=== PATIENT | female | born 1965 | race African-American/Black ===

== ENCOUNTER 2016-08-19 08:46 | Emergency (ER) | payer MEDICAID ==
--- NOTE | 2016-08-19 09:53 | ED Physician Chart ---
Chief Complaint/HPI - Patient Information Date Seen:: 08/19/16 Time Seen:: 09:40 Chief Complaint:: itching base of neck History of Present Illness:: For the last 2 days patient has had the itching around the base of the anterior neck. Allergies:: Allergies Allergy/AdvReac Type Severity Reaction Status Date / Time No Known Allergies Allergy Verified 08/19/16 09:32 Vitals:: Vital Signs - 8 hr 08/19/16 09:27 Temp 97.9 F HR 92 RR 16 BP 144/97 O2 Sat % 100 Historian:: Patient Review:: Nurse's Note Reviewed Review of Systems - Review of Systems General/Constitutional: No fever, No chills Skin: Skin lesions Head: No headache Eyes: No loss of vision ENT: No earache Neck: Other (see above under skin) Cardio Vascular: No chest pain, No palpitations Pulmonary: No SOB GI: No nausea, No vomiting G/U: No dysuria, No hematuria Musculoskeletal: No bone or joint pain, No back pain, No muscle pain Psychiatric: No prior psych history, No depression, No anxiety Hematopoietic: No bruising Allergic/Immuno: No urticaria, No angioedema Neurological: No syncope, No focal symptoms, No weakness Past Medical History - Past Medical History Past Medical History: HTN, Asthma/COPD Family History: Diabetes Melitus, HTN Social History: Non Smoker Surgical History: None Psychiatricy History: None Medication: Reviewed Physical Exam - Physical Examination General/Constitutional: Well-developed, well-nourished, Alert Head: Atraumatic Eyes: Lids, conjuctiva normal, PERRL Other Skin comments:: There is hyperpigmentation of the skin of the anterior base of the neck left side more the right side. The skin is also shiny. The edges of the rash are not well demarcated. ENMT: External ears, nose nl Neck: No nuchal rigidity Respiratory: Nl effort/Exclusion, Clear to Auscultation Cardio Vascular: RRR GI: No tenderness/rebounding/guarding, No hernia : No CVA tenderness Extremities: No tenderness or effusion, Full ROM Neuro/Psych: Alert/oriented Misc: Normal back Assessment - Assessment General Assessment: Rash seems to be tinea corporis even though there is not a well demarcated border. ED Septic Shock - . Is Septic Shock (SBP<90, OR Lactate>4 mmol\L) present?: No - <6hrs of presentation: Vital Signs: Vital Signs - 8 hr 08/19/16 09:27 Temp 97.9 F HR 92 RR 16 BP 144/97 O2 Sat % 100 Reassessment (Disposition) - Reassessment Reassessment Condition:: Unchanged - Diagnosis Diagnosis:: Tinea corporis - Aftercare/Follow up Instructions Medication Prescribed:: Lotrisone 15 g tube to apply sparingly twice a day; Diflucan 100 mg daily for 1 week; Atarax 25 mg #20 to take 14 times a day; note to return to work 08/21/2016 - Patient Disposition Discharge/Transfer:: Home Condition at Disposition:: Stable, Unchanged
== END 2016-08-19 10:08 | disposition home or self-care (01) ==
LOC: ER 08:46
DX: B35.4 Tinea corporis (principal); I10 Essential (primary) hypertension; J45.909 Unspecified asthma, uncomplicated; J44.9 Chronic obstructive pulmonary disease, unspecified
CPT/HCPCS: Z7502

== ENCOUNTER 2016-09-17 13:50 | Emergency (ER) | payer MEDICAID ==
--- NOTE | 2016-09-17 14:39 | ED Physician Chart ---
Chief Complaint/HPI - Patient Information Date Seen:: 09/17/16 Time Seen:: 14:02 Chief Complaint:: LEFT FACE SWELLING History of Present Illness:: THIS IS A 51 YO BLACK FEMALE WITH THE SUDDEN ONSET OF LEFT FACE SWELLING, TENDERNESS AND A HEADACHE. SHE DENIES TRAUMA, FEVER, TOOTHACHE BUT HAS DENTAL ISSUES. SHE HAS HYPERTENSION BUT NO DIABETES OR HEART DISEASE. SHE HAS A HISTORY OF ASTHMA. Allergies:: Allergies Allergy/AdvReac Type Severity Reaction Status Date / Time No Known Allergies Allergy Verified 08/19/16 09:32 Vitals:: Vital Signs - 8 hr 09/17/16 14:00 Temp 97.7 F HR 86 RR 16 BP 129/83 O2 Sat % 97 Historian:: Patient Review:: Nurse's Note Reviewed, Old Chart Reviewed Review of Systems - Review of Systems General/Constitutional: No fever, No chills, No weight loss, No weakness, No diaphoresis, No edema, No loss of appetite Skin: No skin lesions, No rash, No bruising Head: No headache, No light-headedness Eyes: No loss of vision, No pain, No diplopia ENT: No earache, No nasal drainage, No sore throat, No tinnitus, Other (MAXILLA PAIN) Neck: No neck pain, No swelling, No thyromegaly, No stiffness, No mass noted Cardio Vascular: No chest pain, No palpitations, No PND, No orthopnea, No edema Pulmonary: No SOB, No cough, No sputum, No wheezing GI: No nausea, No vomiting, No diarrhea, No pain, No melena, No hematochezia, No constipation, No hematemesis G/U: No dysuria, No frequency, No hematuria Musculoskeletal: No bone or joint pain, No back pain, No muscle pain Endocrine: No polyuria, No polydipsia Psychiatric: No prior psych history, No depression, No anxiety, No suicidal ideation Hematopoietic: No bruising, No lymphadenopathy Allergic/Immuno: No urticaria, No angioedema Neurological: No syncope, No focal symptoms, No weakness, No paresthesia, No headache, No seizure, No dizziness, No confusion, No vertigo Past Medical History - Past Medical History Obtainable: Yes Past Medical History: HTN, Asthma/COPD Family History: Diabetes Melitus, HTN Social History: Non Smoker, No Alcohol, No Drug Use Surgical History: None Psychiatricy History: None Medication: Reviewed Family Medical History - Family Member Mother History Unknown: Yes Ethnicity: Non- Living Status: Still Living Hx Family Hypertension: Yes Father Ethnicity: Non- Living Status: Hx Family Diabetes: Yes Physical Exam - Physical Examination General/Constitutional: Awake, Well-developed, well-nourished, Alert, No distress, GCS 15, Non-toxic appearing, Ambulatory Head: Atraumatic Eyes: Lids, conjuctiva normal, PERRL, EOMI Skin: Nl inspection, No rash, No skin lesions, No ecchymosis, Well hydrated, No lymphadenopathy ENMT: External ears, nose nl, Nasal exam nl, Lips, teeth, gums nl Neck: Nontender, Full ROM w/o pain, No JVD, No nuchal rigidity, No bruit, No mass, No stridor Respiratory: Nl effort/Exclusion, Clear to Auscultation, No Wheeze/Rhonchi/Rales Cardio Vascular: RRR, No murmur, gallop, rubs, NL S1 S2 GI: No tenderness/rebounding/guarding, No organomegaly, No hernia, Normal BS's, Nondistended, No mass/bruits, No McBurney tenderness : No CVA tenderness Extremities: No tenderness or effusion, Full ROM, normal strength in all extremities, No edema, Normal digits & nails Neuro/Psych: Alert/oriented, DTR's symmetric, Normal sensory exam, Normal motor strength, Judgement/insight normal, Mood normal, Normal gait, No focal deficits Misc: normal gait, Normal back, No paraspinal tenderness Labs/Radiology/EKG Results - Lab Results Results: Abnormal Lab Results 09/17/16 09/17/16 09/17/16 14:47 14:47 14:47 WBC 4.5 L RBC 3.79 L Hgb 10.4 L Hct 31.8 L MCV 84.0 MCH 27.4 MCHC Differential 32.6 RDW 15.0 Plt Count 285 MPV 8.3 Neutrophils % 56.1 Lymphocytes % 32.9 Monocytes % 8.7 Eosinophils % 2.3 Basophils % 0.0 Sodium 134 L Potassium 3.6 Chloride 107 Carbon Dioxide 22.2 Anion Gap 8.4 BUN 10 Creatinine 0.8 Est GFR ( Amer) > 60.0 Est GFR (Non-Af Amer) > 60.0 BUN/Creatinine Ratio 12.5 Glucose 110 H Calcium 9.3 Total Bilirubin 0.3 AST 17 ALT 15 Alkaline Phosphatase 72 Total Protein 7.0 Albumin 3.9 Globulin 3.1 Albumin/Globulin Ratio 1.3 Amylase 58 - Radiology Results Results: ct scan of the maxilla = dental disease Assessment - Assessment General Assessment: dental disease and adenitis ED Septic Shock - . Is Septic Shock (SBP<90, OR Lactate>4 mmol\L) present?: No - <6hrs of presentation: Vital Signs: Vital Signs - 8 hr 09/17/16 14:00 Temp 97.7 F HR 86 RR 16 BP 129/83 O2 Sat % 97 Reassessment (Disposition) - Reassessment Reassessment Condition:: Unchanged - Diagnosis Diagnosis:: left sided dental disease with calories - Aftercare/Follow up Instructions Aftercare/Follow-Up Instructions:: Counseled pt regarding lab results/diagnosis & need follow up, Refer to Discharge Instructions, Counseled pt & family regarding lab results/diagnosis & need follow up - Patient Disposition Discharge/Transfer:: Home Condition at Disposition:: Unchanged ED Discharge Plan - Patient Disposition Admit/Discharge/Transfer: PT DISCHARGED HOME Instructions: Dental Caries Additional Instructions: to see her dentist for care jose Forms: Work Release Form
[2016-09-17 14:58] LABS: % EOSINOPHILS 2.3 % (0.0-5.0); % LYMPHOCYTES 32.9 % (20.0-50.0); % MONOCYTES 8.7 % (2.0-10.0); % NEUTROPHILS 56.1 % (40.0-80.0); HEMATOCRIT 31.8 % (35.0-45.0); HEMOGLOBIN 10.4 gm/dL (11.7-15.5); MEAN CORPUSCULAR HEMOGLOBIN 27.4 pg (27.0-31.0); MEAN CORPUSCULAR HGB CONC 32.6 pg (28.0-36.0); MEAN PLATELET VOLUME 8.3 fl; NEUTROPHILE ABSOLUTE 2.5 Th/cmm (1.8-8.0); PLATELET COUNT 285 Th/cmm (150-400); RED BLOOD COUNT 3.79 Mil/cmm (3.80-5.10); WHITE BLOOD COUNT 4.5 Th/cmm (4.8-10.8)
--- NOTE | 2016-09-17 15:28 | Diagnostic Imaging Report ---
CT maxillofacial bones without IV contrast HISTORY: Left maxillary swelling COMPARISON: None Technique: Axial images of the paranasal sinuses were obtained without IV contrast. Reconstructions were made. total DLP: 190, CTDI10.3 Findings: The bilateral orbital floors are intact. The globes and intraconal compartments are intact. There is mild mucosal thickening in the paranasal sinuses. No air-fluid levels identified. Dental disease is noted. No significant focal soft tissue swelling. Few borderline prominent lymph nodes are seen located inferior to bile parotid glands. There appear to be external material seen along the neck region. The mastoid air cells are clear. The bilateral TMJ joints are preserved. There is soft tissue density seen along the left middle ear region. IMPRESSION: No evidence of an acute fracture. No significant focal soft tissue swelling. Limited exam due to lack of IV contrast, however, no discrete fluid collection identified. A few borderline prominent lymph nodes located inferior to the parotid glands and adjacent to the mandibular regions. Findings are nonspecific and may be reactive. Dental disease. Soft tissue density along the left middle ear, clinical correlation recommended.
[2016-09-17 15:31] LABS: ALB/GLOB RATIO 1.3 (1.0-1.8); ALKALINE PHOSPHATASE 72 U/L (34-104); ANION GAP 8.4 (7.0-16.0); BILIRUBIN,TOTAL 0.3 mg/dL (0.3-1.0); BUN - UREA NITROGEN 10 mg/dL (7-25); BUN/CREATININE RATIO 12.5; CALCIUM SERUM 9.3 mg/dL (8.6-10.3); CARBON DIOXIDE 22.2 mEq/L (21.0-31.0); CHLORIDE 107 mEq/L (98-107); CREATININE - SERUM 0.8 mg/dL (0.6-1.2); GLUCOSE 110 mg/dL (70-105); POTASSIUM SERUM 3.6 mEq/L (3.5-5.1); SGOT 17 U/L (13-39); SGPT/ALT 15 U/L (7-52); SODIUM SERUM 134 mEq/L (136-145)
== END 2016-09-17 15:45 | disposition home or self-care (01) ==
LOC: ER 13:50
DX: K08.9 Disorder of teeth and supporting structures, unspecified (principal); I10 Essential (primary) hypertension; J45.909 Unspecified asthma, uncomplicated; J44.9 Chronic obstructive pulmonary disease, unspecified
CPT/HCPCS: 36415-UA; 70486-TC; 80053-TC; 82150-TC; 85025-TC

== ENCOUNTER 2016-11-22 00:03 | Emergency (ER) | payer MEDICAID ==
--- NOTE | 2016-11-22 00:40 | ED Physician Chart ---
ED Chief Complaint/HPI - Patient Information Date Seen:: 11/22/16 Time Seen:: 00:04 Chief Complaint:: Toothache for 2 days. History of Present Illness:: Pt was brought in by private auto because of toothache in lower jaw for 2 days. No fever. Taking po well without N/V/D. Last analgesic use with a Tylenol #3 at about 0500 yesterday. No other bodily pain or discomfort. Allergies:: Allergies Allergy/AdvReac Type Severity Reaction Status Date / Time No Known Allergies Allergy Verified 08/19/16 09:32 Vitals:: Vital Signs - 8 hr 11/22/16 00:10 Temp 98.0 F HR 85 RR 18 BP 170/85 O2 Sat % 98 Historian:: Patient Family MD/PCP:: unknown. LMP:: 10/22/16 Review:: Nurse's Note Reviewed ED Review of Systems - Review of Systems General/Constitutional: No fever, No chills, No weight loss, No weakness, No diaphoresis, No edema, No loss of appetite Skin: No rash, No bruising Head: No headache, No light-headedness Eyes: No loss of vision, No pain, No diplopia ENT: No earache, No nasal drainage, No sore throat, No tinnitus Neck: No neck pain, No swelling, No stiffness, No mass noted Cardio Vascular: No chest pain, No palpitations, No edema Pulmonary: No SOB, No cough, No wheezing GI: No nausea, No vomiting, No diarrhea, No pain G/U: No dysuria, No frequency, No hematuria Manager Marketing Communication: No vaginal discharge, No abnormal vaginal bleed Musculoskeletal: No bone or joint pain, No back pain, No muscle pain Endocrine: No polyuria, No polydipsia Psychiatric: Prior psych history, No depression, No anxiety, No suicidal ideation, No homicidal ideation, No auditory hallucination, No visual hallucination Allergic/Immuno: No urticaria, No angioedema Neurological: No syncope, No focal symptoms, No weakness, No paresthesia, No headache, No dizziness, No confusion ED Past Medical History - Past Medical History Past Medical History: HTN, Asthma/COPD Family History: Diabetes Melitus (sister), HTN (mother) Social History: Non Smoker, No Alcohol, No Drug Use, , Other (lives with her .) Employment:: unemployed. Surgical History: None Psychiatricy History: Depression Medication: Reviewed Family Medical History - Family Member Mother History Unknown: Yes Ethnicity: Non- Living Status: Still Living Hx Family Hypertension: Yes Father History Unknown: Yes Ethnicity: Non- Living Status: Hx Family Diabetes: Yes ED Physical Exam - Physical Examination General/Constitutional: Awake, Well-developed, well-nourished, Alert, No distress, GCS 15, Non-toxic appearing, Ambulatory Other Gen/Cons comments:: Breathes comfortably, speaks clearly, interacts normally, and ambulates without difficulty. Head: Atraumatic Eyes: Lids, conjuctiva normal, PERRL, EOMI Skin: Nl inspection, No rash, No skin lesions, No ecchymosis, Well hydrated, No lymphadenopathy ENMT: External ears, nose nl, TM canals nl, Nasal exam nl, Oropharynx nl Other ENMT comments:: Tenderness at R first and L first molar teeth in lower jaw. No erythema, swelling, or exudate in gingiva. Neck: Nontender, Full ROM w/o pain, No nuchal rigidity, No mass, No stridor Respiratory: Nl effort/Exclusion, Clear to Auscultation, No Wheeze/Rhonchi/Rales Cardio Vascular: RRR, No murmur, gallop, rubs GI: No tenderness/rebounding/guarding, No organomegaly, Normal BS's, Nondistended Other GI comments:: Obese but soft. Extremities: No tenderness or effusion, Full ROM, No edema Neuro/Psych: Alert/oriented (oriented x 3), Normal gait, No focal deficits ED Labs/Radiology/EKG Results - Lab Results Results: Laboratory Tests 11/22/16 01:30 Urine Test NEGATIVE ED Septic Shock - . Is Septic Shock (SBP<90, OR Lactate>4 mmol\L) present?: No - <6hrs of presentation: Vital Signs: Vital Signs - 8 hr 11/22/16 00:10 Temp 98.0 F HR 85 RR 18 BP 170/85 O2 Sat % 98 ED Reassessment (Disposition) - Reassessment Reassessment:: 0130 Pt feels much better. Pt requests to go home now and does not want further observation/management in hospital. Aftercare instructions have been given. Reassessment Condition:: Improved - Diagnosis Diagnosis:: toothache c/w pulpitis, stable and improved. - Aftercare/Follow up Instructions Aftercare/Follow-Up Instructions:: Refer to Discharge Instructions Notes:: Avoid extreme hot or cold food or liquid. F/U with dentist of pt's choice in one day for recheck. Return to ER immediately if condition worsens or if any further questions/problems. Medication Prescribed:: Clindamycin 300 mg tab one tab po q6h as directed. D-40 R-0 Tylenol #3 one tab po q6h prn severe pain. D-10 R-0 Drowsiness precautions given with the use of Tylenol #3. Do not take acetaminophen containing medications such as Tylenol with the use of Tylenol #3. - Patient Disposition Discharge/Transfer:: Home Time:: 01:35 Condition at Disposition:: Stable, Improved ED Discharge Plan - Patient Disposition Instructions: Dental Pain
== END 2016-11-22 02:25 | disposition home or self-care (01) ==
LOC: ER 00:03
DX: K04.01 Reversible pulpitis (principal); J44.1 Chronic obstructive pulmonary disease with (acute) exacerbation; J45.909 Unspecified asthma, uncomplicated
CPT/HCPCS: 99283; 96372; 81025; J1885; Z7502

== ENCOUNTER 2017-02-22 17:46 | Emergency (ER) | payer MEDICAID ==
[2017-02-22 22:25] LABS: URINE MICROSCOPIC INDICATED? YES; URINE SOURCE RANDOM
[2017-02-22 22:35] LABS: URINE BILIRUBIN NEGATIVE (NEGATIVE); URINE BLOOD SMALL (NEGATIVE); URINE GLUCOSE (UA) NEGATIVE (NEGATIVE); URINE KETONE NEGATIVE (NEGATIVE); URINE LEUKOCYTE ESTERASE NEGATIVE (NEGATIVE); URINE NITRATE NEGATIVE (NEGATIVE); URINE PROTEIN 30 mg/dL (NEGATIVE); URINE UROBILINOGEN 0.2 E.U./dL (0.2 - 1.0)
[2017-02-22 22:46] LABS: URINE CLARITY HAZY (CLEAR); URINE COLOR YELLOW
[2017-02-22 22:55] LABS: URINE BACTERIA FEW /hpf (NONE SEEN); URINE EPITHELIAL CELLS FEW /lpf (FEW); URINE WBC 0-2 /hpf (0-5)
[2017-02-22 23:57] LABS: % BASOPHILS 0.1 % (0.0-2.0); % EOSINOPHILS 0.4 % (0.0-5.0); % LYMPHOCYTES 14.8 % (20.0-50.0); % MONOCYTES 10.9 % (2.0-10.0); % NEUTROPHILS 73.8 % (40.0-80.0); HEMOGLOBIN 8.6 gm/dL (12-16); LYMPHOCYTE ABSOLUTE 0.7 Th/cmm (1.5-3.0); MEAN PLATELET VOLUME 7.5 fl; MONOCYTE ABSOLUTE 0.5 Th/cmm (0.3-1.0); NEUTROPHILE ABSOLUTE 3.2 Th/cmm (1.8-8.0); RED BLOOD COUNT 3.59 Mil/cmm (3.80-5.10); RED CELL DISTRIBUTION WIDTH 15.7 % (11.5-20.0); WHITE BLOOD COUNT 4.4 Th/cmm (4.8-10.8)
[2017-02-23 00:02] LABS: PLATELET COUNT 432 Th/cmm (150-400)
--- NOTE | 2017-02-23 00:02 | ED Physician Chart ---
ED Chief Complaint/HPI - Patient Information Date Seen:: 02/22/17 Time Seen:: 22:00 Chief Complaint:: Low back pain History of Present Illness:: 52 yo female had chronic back pain worsening for 2 days. She denied trauma or leg pain. Patient also had cough and congestion. Allergies:: Allergies Allergy/AdvReac Type Severity Reaction Status Date / Time No Known Allergies Allergy Verified 08/19/16 09:32 Vitals:: Vital Signs - 8 hr 02/22/17 18:31 Temp 100.2 F HR 999 RR 16 BP 154/86 O2 Sat % 99 ED Review of Systems - Review of Systems General/Constitutional: No fever Skin: No rash Head: No headache Eyes: No pain ENT: No earache Neck: No neck pain Cardio Vascular: No chest pain Pulmonary: Cough, Sputum GI: No nausea, No vomiting Musculoskeletal: Back pain ED Past Medical History - Past Medical History Past Medical History: HTN, Asthma/COPD, Other (back pain) Social History: Smoker, Alcohol, No Drug Use Family Medical History - Family Member Mother History Unknown: Yes Ethnicity: Non- Living Status: Still Living Hx Family Hypertension: Yes Father History Unknown: Yes Ethnicity: Non- Living Status: Hx Family Diabetes: Yes ED Physical Exam - Physical Examination General/Constitutional: Awake, Alert Head: Atraumatic Eyes: PERRL Skin: No skin lesions ENMT: Nasal exam nl Neck: No nuchal rigidity Other Respiratory comments:: mild rhonchi Cardio Vascular: RRR, No murmur, gallop, rubs, NL S1 S2 GI: No tenderness/rebounding/guarding Other Extremities comments:: lumbar tenderness with limited and painful ROM Neuro/Psych: No focal deficits ED Labs/Radiology/EKG Results - Lab Results Results: Laboratory Tests 02/22/17 22:00 Urine Source RANDOM Urine Color YELLOW Urine Clarity HAZY Urine pH 6.0 Ur Specific [place] 1.020 Urine Protein 30 H Urine Glucose (UA) NEGATIVE Urine Ketones NEGATIVE Urine Blood SMALL H Urine Nitrate NEGATIVE Urine Bilirubin NEGATIVE Urine Urobilinogen 0.2 Ur Leukocyte Esterase NEGATIVE Urine RBC 2-5 Urine WBC 0-2 Ur Epithelial Cells FEW Urine Bacteria FEW ED Assessment - Assessment General Assessment: Lumbago Bronchitis Anemia, microcystic Assessment/Comments:: CBC, CMP Tylenol Toradol Ibuprofen DuoNeb D/c home Ciprofloxacin F/u PCP or return to ER if symptoms worsen ED Septic Shock - . Is Septic Shock (SBP<90, OR Lactate>4 mmol\L) present?: No - <6hrs of presentation: Vital Signs: Vital Signs - 8 hr 02/22/17 18:31 Temp 100.2 F HR 999 RR 16 BP 154/86 O2 Sat % 99 ED Reassessment (Disposition) - Reassessment Reassessment Condition:: Improved - Patient Disposition Discharge/Transfer:: Home ED Discharge Plan - Patient Disposition Admit/Discharge/Transfer: PT DISCHARGED HOME Condition at Disposition: Improved Prescriptions: Ciprofloxacin [Cipro] 500 mg PO BID #10 tab Instructions: Back Pain, Adult Additional Instructions: take medications as prescribed. return to er for worsening symptoms. Forms: Work Release Form
[2017-02-23 00:18] LABS: ALB/GLOB RATIO 1.5 (1.0-1.8); ALBUMIN 4.3 gm/dL (3.7-5.3); ALKALINE PHOSPHATASE 61 U/L (34-104); ANION GAP 8.8 (7.0-16.0); BILIRUBIN,TOTAL 0.3 mg/dL (0.3-1.0); BUN - UREA NITROGEN 12 mg/dL (7-25); CALCIUM SERUM 8.9 mg/dL (8.6-10.3); CHLORIDE 104 mEq/L (98-107); CREATININE - SERUM 0.8 mg/dL (0.6-1.2); GFR AFRICAN-AMERICAN > 60.0 ml/min (>90); GFR NON AFRICAN-AMERICAN > 60.0 ml/min; GLUCOSE 100 mg/dL (70-105); POTASSIUM SERUM 3.8 mEq/L (3.5-5.1); SGOT 14 U/L (13-39); SGPT/ALT 11 U/L (7-52); SODIUM SERUM 133 mEq/L (136-145); TOTAL PROTEIN,SERUM 7.2 gm/dL (6.0-8.3)
[2017-02-23] MEDS ORDERED: Albuterol/Ipratropium Neb 3 ML AERS HHN ONE ×2 (00:54→01:16)
== END 2017-02-23 02:00 | disposition home or self-care (01) ==
LOC: ER 17:46
DX: M54.5 Low back pain (principal); I10 Essential (primary) hypertension; J45.909 Unspecified asthma, uncomplicated; J44.9 Chronic obstructive pulmonary disease, unspecified; F17.200 Nicotine dependence, unspecified, uncomplicated
CPT/HCPCS: 36415-UA; 80053-TC; 81001-TC; 85025-TC; Z7502; Z7610

== ENCOUNTER 2018-07-02 15:14 | Emergency (ER) | payer MEDICAID ==
--- NOTE | 2018-07-02 15:55 | ED Physician Chart ---
ED Chief Complaint/HPI - Patient Information Date Seen:: 07/02/18 Time Seen:: 15:49 Chief Complaint:: rash legs arms History of Present Illness:: 53 yr old female with rash arms legs after sleeping on bed set she bought from [facility] no dogs no mosquitos Allergies:: Allergies Allergy/AdvReac Type Severity Reaction Status Date / Time ibuprofen Allergy Verified 07/02/18 15:28 lisinopril Allergy Verified 07/02/18 15:28 Vitals:: Vital Signs - 8 hr 07/02/18 15:29 Temp 98.5 F HR 90 RR 18 BP 136/80 O2 Sat % 98 ED Review of Systems - Review of Systems General/Constitutional: No fever, No chills, No weight loss, No weakness, No diaphoresis, No edema, No loss of appetite Skin: Skin lesions, Rash Head: No headache, No light-headedness Eyes: No loss of vision, No pain, No diplopia ENT: No earache, No nasal drainage, No sore throat, No tinnitus Neck: No neck pain, No swelling, No thyromegaly, No stiffness, No mass noted Cardio Vascular: No chest pain, No palpitations, No PND, No orthopnea, No edema Pulmonary: No SOB, No cough, No sputum, No wheezing GI: No nausea, No vomiting, No diarrhea, No pain, No melena, No hematochezia, No constipation, No hematemesis G/U: No dysuria, No frequency, No hematuria Musculoskeletal: No bone or joint pain, No back pain, No muscle pain Endocrine: No polyuria, No polydipsia Psychiatric: No prior psych history, No depression, No anxiety, No suicidal ideation Hematopoietic: No bruising, No lymphadenopathy Allergic/Immuno: No urticaria, No angioedema Neurological: No syncope, No focal symptoms, No weakness, No paresthesia, No headache, No seizure, No dizziness, No confusion, No vertigo ED Past Medical History - Past Medical History Past Medical History: HTN Family Medical History - Family Member Mother History Unknown: Yes Ethnicity: Non- Living Status: Still Living Hx Family Hypertension: Yes Father History Unknown: Yes Ethnicity: Non- Living Status: Hx Family Coronary Artery Disease: Yes Hx Family Diabetes: Yes ED Physical Exam - Physical Examination General/Constitutional: Awake, Well-developed, well-nourished, Alert, No distress, GCS 15, Non-toxic appearing, Ambulatory Head: Atraumatic Eyes: Lids, conjuctiva normal, PERRL, EOMI Skin: Nl inspection, No rash, No skin lesions, No ecchymosis, Well hydrated, No lymphadenopathy Other Skin comments:: rash skin lesions shruthi arms legs large red blotches ENMT: External ears, nose nl, Nasal exam nl, Lips, teeth, gums nl Neck: Nontender, Full ROM w/o pain, No JVD, No nuchal rigidity, No bruit, No mass, No stridor Respiratory: Nl effort/Exclusion, Clear to Auscultation, No Wheeze/Rhonchi/Rales Cardio Vascular: RRR, No murmur, gallop, rubs, NL S1 S2 GI: No tenderness/rebounding/guarding, No organomegaly, No hernia, Normal BS's, Nondistended, No mass/bruits, No McBurney tenderness : No CVA tenderness Extremities: No tenderness or effusion, Full ROM, normal strength in all extremities, No edema, Normal digits & nails Neuro/Psych: Alert/oriented, DTR's symmetric, Normal sensory exam, Normal motor strength, Judgement/insight normal, Mood normal, Normal gait, No focal deficits Misc: Normal back, No paraspinal tenderness ED Assessment - Assessment General Assessment: rash arms legs ED Septic Shock - . Is Septic Shock (SBP<90, OR Lactate>4 mmol\L) present?: No - <6hrs of presentation: Vital Signs: Vital Signs - 8 hr 07/02/18 15:29 Temp 98.5 F HR 90 RR 18 BP 136/80 O2 Sat % 98 ED Reassessment (Disposition) - Reassessment Reassessment:: rash r/o insect bites - Diagnosis Diagnosis:: as above - Aftercare/Follow up Instructions Medication Prescribed:: rash - Patient Disposition Discharge/Transfer:: Home Condition at Disposition:: Stable
== END 2018-07-02 16:25 | disposition home or self-care (01) ==
LOC: ER 15:14
DX: R21 Rash and other nonspecific skin eruption (principal); I10 Essential (primary) hypertension; Z88.6 Allergy status to analgesic agent; Z88.8 Allergy status to other drugs, medicaments and biological substances
CPT/HCPCS: Z7502